=== PATIENT | female | born 1960 | race Caucasian/White ===

== ENCOUNTER 2017-11-17 14:15 | Inpatient (IN) | payer OTHER ==
[~2017-11-17] VITALS: Ht 167.6 cm; Wt 67.6 kg
[~2017-11-17 14:15] MED LIST: SYNTHROID75 MCG PO
== END 2017-12-01 15:24 | DRG 734 ==
LOC: OB/GYN 11-29 05:46 → O/R 11-29 05:46 → SURH 11-29 13:00 → OB/GYN 11-29 18:22
PROVIDERS: Obstetrics & Gynecology Gynecologic Oncology
PROC: 0UT90ZZ Resection of Uterus, Open Approach (ICD-10-PCS; 2017-11-29)
PROC: 0UT20ZZ Resection of Bilateral Ovaries, Open Approach (ICD-10-PCS; 2017-11-29)
PROC: 0UT70ZZ Resection of Bilateral Fallopian Tubes, Open Approach (ICD-10-PCS; 2017-11-29)
PROC: 0DNE0ZZ Release Large Intestine, Open Approach (ICD-10-PCS; 2017-11-29)
PROC: 0DQE0ZZ Repair Large Intestine, Open Approach (ICD-10-PCS; 2017-11-29)
PROC: 07TC0ZZ Resection of Pelvis Lymphatic, Open Approach (ICD-10-PCS; principal; 2017-11-29 13:00)
DX: C54.1 Malignant neoplasm of endometrium (principal); K91.71 Accidental puncture and laceration of a digestive system organ or structure during a digestive system procedure; K66.0 Peritoneal adhesions (postprocedural) (postinfection); E03.8 Other specified hypothyroidism